=== PATIENT | female | born 1975 | race Caucasian/White ===

== ENCOUNTER → 2017-03-10 | Day surgery (SDC) | payer OTHER ==
[2017-03-07 12:49] VITALS: Ht 158.8 cm; Wt 122.7 kg
[~2017-03-10] VITALS: Ht 158.8 cm; Wt 122.7 kg
[~2017-03-10] MED LIST: COLE1TAB PO; GLC/500 PO; LIDOCAINE HCL 2% 2 ML VIAL (20MG/ML) ONE; MIDAZOLAM HCL 1 MG/ML 2ML VIAL ONE; ONDANSETRON INJ 2 MG/ML 2 ML VIAL ONE; PROPOFOL IV EMULSION 10 MG/ML 20 ML VIAL IV ONE; SODIUM CHLORIDE 0.9% 500ML 500 ML IV ONE
--- NOTE | 2017-03-10 10:31 | Endo History and Physical ---
History & Physical Date of Service: Mar 10, 2017. Chief Complaint: chronic diarrhea Referring Physician: Dr. Bhavin Mason History of Present Illness Ms. Henrietta Marcum for diarrhea /urgent bowel habits. She is a pleasant 41-year-old female who has been having intermittent but her Gent loose bowel habits for a number of years associated with right lower quadrant abdominal pain. They seem to have gotten worse with more urgency and loose stools over the last several months, 1 episode she did see rectal bleeding on the toilet paper. ~She often can not make it to the bathroom. She also has a chronic right-sided abdominal pain that is been evaluated in multiple different ways including ultrasounds, and EGD EUS with Dr. Johnson ~in past. She has had no weight loss or other alarm symptoms. ~She states that she has a strong family history of ~ulcerative colitis. Past Surgical History Hx Cardiac Surgery: No Hx Internal Defibrillator: No Hx Pacemaker: No Hx Abdominal Surgery: Yes (HYSTERECTOMY, CHRISS) Hx of Implantable Prosthesis: No Hx Post-Op Nausea and Vomiting: No Hx Cancer Surgery: No Hx Thoracic Surgery: No Hx Orthopedic: Yes (RT ANKLE SURGERY, LEFT CTR AND GANGLION CYST REMOVED) Hx Urinary Tract Surgery: No Family History IBD Social History Smoking Status: Never Smoker Hx Substance Use: No Hx Alcohol Use: Yes (OCCASIONALLY) Allergies Coded Allergies: No Known Allergies (Verified , 03/10/17) Current Medications Reported Home Medications Medications Dose Route/Sig Max Daily Dose Days Date Category Dose Instructions Colestid (Colestipol Hcl) 1 Gm Tab 1 Gm PO BID 03/07/17 Reported NEW RX, HAS NOT STARTED Glucophage (Metformin Hcl) 500 Mg Tab 500 Mg PO QPM 03/07/17 Reported Vital Signs Weight (Kilograms): 122.73 Height (Feet): 5 Height (Inches): 2.5 Date Time Temp Pulse Resp B/P (MAP) Pulse Ox O2 Delivery O2 Flow Rate FiO2 03/10/17 09:48 36.7 80 18 173/95 (121) 100 Room Air Physical Exam General Appearance: WD/WN, no apparent distress Respiratory/Chest: Auscultation: breath sounds normal, CTA except as noted Cardiovascular: Heart Auscultation: RRR, normal S1 Abdomen: Bowel Sounds: normal Inspection & Palpation: soft, non-distended Assessment and Plan 41 yo presenting for colonsocopy for alterations in bowel habits
--- NOTE | 2017-03-10 11:01 | GI REPORT ---
Procedure Date: 03/10/2017 10:07 AM Procedure: Colonoscopy Indications: Change in bowel habits Medicines: General Anesthesia Complications: No immediate complications. Estimated blood loss: None. Estimated Blood Loss: Estimated blood loss: none. Procedure: Pre-Anesthesia Assessment: - Pre-Anesthesia Assessment: - Prior to the procedure, a History and Physical was performed, and patient medications, allergies and sensitivities were reviewed. The patient's tolerance of previous anesthesia was reviewed. Please see [facility] for complete details. - The risks and benefits of the procedure and the sedation options and risks were discussed with the patient. All questions were answered and informed consent was obtained. - Patient identification and proposed procedure were verified prior to the procedure by the physician and the nurse. The procedure was verified in the pre-procedure area in the procedure room. After obtaining informed consent, the endoscope was passed carefully and meticuously under direct vision and only advanced when the lumen was clearly identified, C02 insuflation was utilized throughout the entirity of the procedure. Throughout the procedure, the patient's blood pressure, pulse, and oxygen saturations were monitored continuously. After I obtained informed consent, the scope was passed under direct vision. Throughout the procedure, the patient's blood pressure, pulse, and oxygen saturations were monitored continuously. The Scope was introduced through the anus and advanced to the cecum, identified by appendiceal orifice and ileocecal valve. The colonoscopy was performed without difficulty. The patient tolerated the procedure well. The quality of the bowel preparation was good. Findings: Internal hemorrhoids were found during retroflexion. The exam was otherwise normal throughout the examined colon. Biopsies for histology were taken with a cold forceps from the entire colon for evaluation of microscopic colitis. The terminal ileum appeared normal. Impression: - Internal hemorrhoids. - The examined portion of the ileum was normal. - Biopsies were taken with a cold forceps from the entire colon for evaluation of microscopic colitis. Recommendation: - Discharge patient to home (with escort). - Await pathology results. - Return to GI clinic as scheduled. Azar Montero MD 03/10/2017 11:00:40 AM This report has been signed electronically. Note Initiated On: 03/10/2017 10:07 AM I attest to the content of the Intraoperative Record and orders documented therein, exceptions below
--- NOTE | 2017-03-10 11:04 | Discharge Instructions ---
Endoscopy Patient Instructions Date / Procedure(s) Performed Mar 10, 2017. Colonoscopy Allergy Information Coded Allergies: No Known Allergies (Verified , 03/10/17) Discharge Date / Findings Mar 10, 2017. Findings: Internal hemorrhoids were found during retroflexion. The exam was otherwise normal throughout the examined colon. Biopsies for histology were taken with a cold forceps from the entire colon for evaluation of microscopic colitis. The terminal ileum appeared normal. Impression: - Internal hemorrhoids. - The examined portion of the ileum was normal. - Biopsies were taken with a cold forceps from the entire colon for evaluation of microscopic colitis. Recommendation: - Discharge patient to home (with escort). - Await pathology results. - Return to GI clinic as scheduled. Medication Instructions Stopped Medication(s): last Glucophage Tuesday Provider Instructions Activity Restrictions - No exercising or heavy lifting for 24 hours. - Do not drink alcohol the day of the procedure. - Do not drive a car or operate machinery until the day after the procedure. - Do not make any important decisions or sign important papers in 24 hours after the procedure. Following Day: - Return to full activity which may include returning to work/school. Diet Start your diet with liquids and light foods (jello, soup, juice, toast). Then eat your usual diet if not nauseated. Treatment For Common After Affects For mild abdominal pain, bloating, or excessive gas: - Rest - Eat lightly - Lie on right side Follow-Up Information Follow-up with Dr. Bhavin Mason as scheduled Anesthesia Information What You Should Know You have had a procedure that required some medicine to reduce anxiety and discomfort. This treatment is called moderate sedation. After receiving the treatment, you may be sleepy, but you will be able to breathe on your own. The effects of the treatment may last for several hours. Follow these instructions along with Activity/Diet recommendations noted above: * Do NOT do anything where dizziness or clumsiness would be dangerous. * Rest quietly at home today, then you can be up and about tomorrow. * Have a responsible person stay with you the rest of today. * You may have had an I.V. today. If so, you may take the dressing off later today. Recommendations Call your doctor if: * Trouble breathing * Continuous vomiting for more than 24 hours * Temperature above 101 degrees * Severe abdominal pain or bloating * Pain not relieved by pain medicine ordered * There is increased drainage or redness from any incision * A large amount of rectal bleeding greater than 2-3 tablespoons. (If you had a polyp/s removed or have hemorrhoids, a small amount of blood - from the rectum is to be expected.) * You have any unanswered questions or concerns. IN THE EVENT OF A SERIOUS EMERGENCY, GO TO THE NEAREST EMERGENCY ROOM Your discharge instructions were prepared by provider Azar Montero. Patient Instructions Signature Page Henrietta Marcum Patient (or Guardian) Signature/Date: I have read and understand the instructions given to me by my caregivers. Caregiver/RN/Doctor Signature/Date: The above-named patient and/or guardian has received patient instructions on this date. + Original Patient Signature Page (only) stays with chart. Please make copy for patient.
[2017-03-10 11:31] VITALS: BP 136/85; PULSE 77; O2SAT 98
--- NOTE | 2017-03-10 11:37 | Anesthesiology Progress Note ---
Anesthesia Post Op Note Date & Time Mar 10, 2017 at 11:36 Vital Signs Pain Intensity: 0 Vital Signs Past 12 Hours Date Time Temp Pulse Resp B/P (MAP) Pulse Ox O2 Delivery O2 Flow Rate FiO2 03/10/17 10:59 84 16 108/68 (81) 98 Room Air 03/10/17 09:48 36.7 80 18 173/95 (121) 100 Room Air Notes Mental Status: alert / awake / arousable, participated in evaluation Pt Amnestic to Procedure: Yes Nausea / Vomiting: adequately controlled Pain: adequately controlled Airway Patency, RR, SpO2: stable & adequate BP & HR: stable & adequate Hydration State: stable & adequate Anesthetic Complications: no major complications apparent
== END | disposition home or self-care (01) ==
LOC: C.GI 09:33
PROVIDERS: ATTEND Internal Medicine
DX: R19.4 Change in bowel habit (principal); K64.8 Other hemorrhoids; Z83.79 Family history of other diseases of the digestive system; Z79.84 Long term (current) use of oral hypoglycemic drugs